=== PATIENT | male | born 1960 | race Caucasian/White ===

== ENCOUNTER → 2017-05-26 11:19 | Outpatient (CLI) | payer BC, SELFPAY ==
--- NOTE | 2017-05-26 11:32 | XR_ITS ---
XR wrist RT min 3V HISTORY: ITS.REASON: RT WRIST PAIN ORDERING PHYSICIAN: Ryan Mays MD PATIENT AGE: 56 years COMPARISON: None FINDINGS: No fracture or dislocation. No lytic or blastic change. There is normal mineralization.. The joint spaces are well-preserved. No significant degenerative/arthritic changes. No erosive changes evident.. IMPRESSION: Negative wrist
== END ==
PROVIDERS: PCP Internal Medicine Adolescent Medicine; Visit Provider Internal Medicine Adolescent Medicine
DX: M25.531 Pain in right wrist (principal)
CPT/HCPCS: 73110

== ENCOUNTER 2020-04-12 17:49 | Emergency (ER) | payer OTHER, SELFPAY ==
[2020-04-12 17:58] VITALS: BP 169/88; PULSE 88; RESP 17; TEMP 36.8; O2SAT 97; BMI 27.8
--- NOTE | 2020-04-12 19:01 | XR_ITS ---
PROCEDURE: XR CHEST 2V CLINICAL HISTORY: SOA/COUGH COMPARISON: CT CHWWO CT CHEST W/WO CONTRAST from 09/07/2016 FINDINGS: The cardiomediastinal silhouette and pulmonary vascularity are within normal limits. There is mild prominence of the interstitium which may be related to chronic peribronchial inflammatory change/COPD. No lobar consolidation or collapse Degenerative change thoracic spine IMPRESSION: No acute findings. Dictated by: Nadir Keen MD 04/12/2020 23:23 Nadir Keen MD in [place] 04/12/2020 23:23
[2020-04-12 19:12] VITALS: BP 169/88; PULSE 88; RESP 17; TEMP 36.8; O2SAT 97; BMI 27.7
--- NOTE | 2020-04-12 19:34 | HMH.EDUTC ---
[facility] [place] Clinical Impression: Acute bronchitis Qualifiers: Bronchitis organism: unspecified organism Qualified Code(s): J20.9 - Acute bronchitis, unspecified Disposition: Home, Self-Care Condition on Discharge: Good Instructions: Acute Bronchitis, Preventing the Spread of Coronavirus Discharge Instructions Additional Instructions: isolate until test results are known Start antibiotic today. Be sure to complete entire prescription even if feeling better Tylenol and ibuprofen as needed for pain or fever Humidifier/vaporizer/hot steamy shower Follow-up with primary care tomorrow. Follow-up immediately in the ER of the [facility] for new or worsening symptoms or no noticeable improvement over the next 48-72 hours. Stop smoking Tessalon Perles will not cause drowsiness to use at bedtime to help stop cough so that she can get some sleep Prescriptions: Benzonatate [Tessalon Perle 100mg Cap*] 100 mg PO BID 7 Days #14 cap Transmission Status: Pending to [employer] Azithromycin [Zithromax 250mg tab] 250 mg PO DIRECTED #6 tab Transmission Status: Pending to [employer] Referrals: Ryan Mays MD [Primary Care Provider] - Forms: Work/School Release Time of Disposition: 19:46 Medical Decision Making - Jarvis Inquiry Pt receiving controlled substance: No Vital Signs: 04/12/20 17:58 04/12/20 19:12 Temperature 98.2 F 98.2 F Temperature Source Oral Oral Pulse Rate [Right Radial] 88 88 Respiratory Rate 17 17 Blood Pressure [Right Arm] 169/88 H 169/88 H Blood Pressure Mean [Right Arm] 115 115 Blood Pressure Source [Right Arm] Automatic Cuff Blood Pressure Position [Right Arm] Sitting 02 Sat by Pulse Oximetry 97 97 Oxygen Delivery Method Room Air Room Air Orders (Tests/Meds): ORDERS Category Date Time Status Chest XR 2 view (NOT portable) [XR chest 2V] Stat Exams 04/12/20 19:01 Taken - Radiology Data #1 Image(s): Chest Image Reviewed: Yes I reviewed the patient's radiology image w/the ED provider Preliminary Findings: Normal/[place] [facility] [place] - General Chief complaint: [facility] Stated complaint: SOA;Coughing Time Seen by Provider: 04/12/20 19:42 Mode of Arrival: Ambulatory Source of Information: Patient Limitations: No Limitations Description of Symptoms (Recalled from Triage Doc. by RN): pt presents to ed with c/o upper respiratory symptoms and cough. 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 pt states that his listened to his lungs and states that she thinks he has pneumonia and wants him checked. pt denies fever. states his voice was hoarse earlier this week. HEENT Symptoms (Recalled from RN notes): No Resp Symptoms (Recalled from RN notes): Yes Skin Symptoms (Recalled from RN notes): No MS Symptoms (Recalled from RN notes): No Functional Status (Recalled from RN notes): WNL - History of Present Illness Provider Complaint: 59 yr old pt presents to ed with c/o upper respiratory symptoms and cough. 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 pt states that his who is a nurse listened to his lungs and states that she thinks he has pneumonia and wants him checked. pt denies fever. states his voice was hoarse earlier this week. - Related Data Previous Rx's Medication Instructions Recorded Azithromycin [Zithromax 250mg 250 mg PO DIRECTED #6 tab 04/12/20 tab] Benzonatate [Tessalon Perle 100mg 100 mg PO BID 7 Days #14 cap 04/12/20 Cap*] Allergies Allergy/AdvReac Type Severity Reaction Status Date / Time No Known Allergies Allergy Verified 04/12/20 19:15 - Worker's Comp Is this a Worker's Comp case?: No [facility] History - Hepatitis A Screen Drug use history?: No High risk sexual behaviors?: No History of sexually transmitted infection?: No Currently employed?: No Childcare worker?: No Do you have indoor plumbing?: Yes Do you have el
[2020-04-12 19:53] VITALS: BP 169/88; PULSE 88; RESP 17; TEMP 36.8; O2SAT 97
[2020-04-14 12:52] LABS: Covid-19 Nasal PCR Sendout Lex Not Detected
== END 2020-04-12 19:55 | disposition home or self-care (01) ==
PROVIDERS: Emergency Provider Nurse Practitioner Family; PCP Internal Medicine Adolescent Medicine
DX: Z20.828 Contact with and (suspected) exposure to other viral communicable diseases (principal); J20.9 Acute bronchitis, unspecified
CPT/HCPCS: 71046; 99202; U0004

== ENCOUNTER → 2021-12-10 13:20 | Outpatient (CLI) | payer OTHER, SELFPAY ==
[2021-12-10 14:05] LABS: Basophils # 0.1 K/mm3 (0-0.2); Basophils % 0.8 % (0.1-2.0); Eosinophils # 0.4 K/mm3 (0.0-0.4); Eosinophils % 5.7 % (0.1-12.0); Hematocrit 44.4 % (42.0-52.0); Hemoglobin 13.8 g/dL (14.1-18.0); Lymphocytes # 1.6 K/mm3 (0.7-4.5); Lymphocytes % 23.8 % (10-50); Mean Corpuscular HGB Conc 31.1 g/dL (31.8-35.4); Mean Corpuscular Hemoglobin 30.4 pg (27.0-31.2); Mean Corpuscular Volume 97.7 fl (80-94); Mean Platelet Volume 8.7 fl (7.4-10.4); Monocytes # 0.5 K/mm3 (0.1-1.0); Monocytes % 6.5 % (1.7-9.3); Neutrophils # 4.4 K/mm3 (1.8-7.8); Neutrophils % 63.2 % (37.0-80.0); Platelet Count 198 K/mm3 (142-424); Red Blood Count 4.54 M/mm3 (4.60-6.20); Red Cell Distribution Width 13.6 % (11.5-17.5); White Blood Count 6.9 K/mm3 (4.8-10.8)
[2021-12-10 14:18] LABS: Alanine Aminotransferase 20 U/L (12-78); Albumin Level 3.5 g/dl (3.5-5.0); Alkaline Phosphatase 138 U/L (38-126); Anion Gap 6.5 mEq/L (5-15); Aspartate Amino Transferase 23 U/L (17-59); Blood Urea Nitrogen 18 mg/dl (9-20); Calcium 8.6 mg/dl (8.4-10.2); Carbon Dioxide 28 mmol/L (22.0-30.0); Chloride 107 mmol/L (98-107); Estimated Glomerular Filt Rate 115 ml/min (>60); GFR (African American) 139 ML/MIN (>60); Glucose 162 mg/dl (74-100); Potassium 3.5 mmoL/L (3.5-5.1); Sodium 138 mmol/L (136-145)
[2021-12-10 14:30] LABS: Bilirubin,Total < 0.1 mg/dl (0.2-1.3)
[2021-12-10 15:11] LABS: Bilirubin,Indirect 0.1 mg/dL (0.0-0.9)
[2021-12-12 10:08] LABS: HIV Screen 4th Generation wRfx Non Reactive (Non Reactive)
[2021-12-12 23:15] LABS: Hep A Ab, IgM Negative; Hepatitis B Surface Antigen Negative; Hepatitis C Antibody 0.2
[2021-12-12 23:16] LABS: Hepatitis B Core Antibody IgM Negative
== END ==
PROVIDERS: PCP Internal Medicine Adolescent Medicine; Visit Provider Family Medicine Addiction Medicine
DX: F11.20 Opioid dependence, uncomplicated (principal); Z11.4 Encounter for screening for human immunodeficiency virus [HIV]
CPT/HCPCS: 36415; 80048; 80074; 80076; 85025; 86703; G0432

== ENCOUNTER 2022-03-14 08:46 | Emergency (ER) | payer OTHER, SELFPAY ==
[2022-03-14 08:47] VITALS: BP 154/77; PULSE 74; RESP 18; TEMP 36.8; O2SAT 97; BMI 25.7
--- NOTE | 2022-03-14 08:53 | XR_ITS ---
FINAL REPORT TECHNIQUE: Single view chest CLINICAL HISTORY: SOB/CP FINDINGS: A single view of the chest was obtained. The heart and mediastinum are within normal limits. There are mild chronic changes. The lungs are otherwise clear. There is no pneumothorax. Osseous structures are unremarkable. IMPRESSION: No acute cardiopulmonary process. Reviewed, Interpreted and Dictated by Sumeet Preciado MD Transcribed by Laney Zelaya Authenticated and [facility]
--- NOTE | 2022-03-14 08:54 | HMH.EDGENADL ---
Discharge Plan Disposition Patient Disposition: Home, Self-Care Condition: Good Prescriptions Prescriptions: New albuterol sulfate [ProAir HFA] 90 mcg/actuation HFA aerosol inhaler 1 inh inhalation Q6H PRN (Reason: shortness of breath or wheezing) Qty: 8.5 0RF No Action azithromycin 250 MG tablet 250 mg PO DIRECTED Qty: 6 0RF Rx Instructions: Take two (2) tablets on day #1, then one (1) tablet day #2 thru #5 benzonatate 100 MG capsule 100 mg PO BID 7 Days Qty: 14 0RF Referrals Follow up/Referrals: Ryan Mays MD [Primary Care Provider] - See instructions Clinical Impressions Clinical Impression: Acute dyspnea Instructions Patient Instructions: DI for Shortness of Breath, Albuterol Discharge ED Provider: Félix Chino General Adult HPI General Chief complaint: Shortness of Breath/Dyspnea Stated complaint: SOA Time Seen by Provider: 03/14/22 08:52 History of Present Illness HPI narrative: 7-year-old male, denies any prior respiratory difficulty, does admit to smoking. Denies any prior cardiac history or recent work-up. Reports shortness of breath just started today, denies associated chest pain, nausea, vomiting, diaphoresis, denies any fever, chills, cough, wheezing. Has not had any similar prior episodes in the past, is worse with exertion however not any worse with any particular position. He denies any leg swelling, denies any history of DVT/PE, denies any recent long distance travel, recent procedures. No known sick contacts, no treatments prior to arrival Related Data Previous Rx's Medication Instructions Recorded azithromycin 250 mg tablet 250 mg PO DIRECTED #6 tabs 04/12/20 benzonatate 100 mg capsule 100 mg PO BID 7 days #14 caps 04/12/20 albuterol sulfate 90 mcg/actuation 1 inh inhalation Q6H PRN shortness 03/14/22 aerosol inhaler (ProAir HFA) of breath or wheezing #8.5 grams Allergies Allergy/AdvReac Type Severity Reaction Status Date / Time No Known Allergies Allergy Verified 04/12/20 19:15 [facility] Medical History (Updated 03/14/22 @ 10:05 by Félix Chino MD) History of pancreatitis Surgical History (Updated 03/14/22 @ 09:34 by Alba Bustillos RN) History of back surgery History of knee surgery Social History (Updated 03/14/22 @ 09:34 by Alba Bustillos RN) Smoking Status: Current every day smoker alcohol intake: never current occupational status: employed and other Travel in the last 8 weeks: None ROS Obtained: Yes Systems reviewed as appropriate & no additional complaints except as documented Constitutional Constitutional: Reports system reviewed and no additional complaints, except as documented Eyes Eyes: Reports system reviewed and no additional complaints, except as documented ENT Ears, Nose, Mouth, and Throat: Reports system reviewed and no additional complaints, except as documented Cardiovascular Cardiovascular: Reports system reviewed and no additional complaints, except as documented Respiratory Respiratory: Reports system reviewed and no additional complaints, except as documented Gastrointestinal Gastrointestingal: Reports system reviewed and no additional complaints, except as documented Genitourinary Male Genitourinary: Reports system reviewed and no additional complaints, except as documented Musculoskeletal Musculoskeletal: Reports system reviewed and no additional complaints, except as documented Integumentary/Breasts Skin/Breast: Reports system reviewed and no additional complaints, except as documented Neurologic Neurologic: Reports system reviewed and no additional complaints, except as documented Endocrine Endocrine: Reports system reviewed and no additional complaints, except as documented Hematologic/Lymphatic Henatologic/Lymphatic: Reports system reviewed and no additional complaints, except as documented Allergic/Immunologic Allergic/Immunologic: Reports system reviewed and no additional complai
--- NOTE | 2022-03-14 08:59 | PC.NURSE ---
ED MD AT BEDSIDE FOR EVALUATION
--- NOTE | 2022-03-14 09:08 | PC.NURSE ---
XR AT BEDSIDE
[2022-03-14 09:23] LABS: Coronavirus 19, PCR Not Detected (NotDetected); Influenza A, PCR Not Detected (NotDetected); Influenza B, PCR Not Detected (NotDetected)
[2022-03-14 09:30] VITALS: BP 150/83; PULSE 74; RESP 20; O2SAT 95
[2022-03-14 09:32] LABS: Basophils # 0.1 K/mm3 (0-0.2); Basophils % 0.5 % (0.1-2.0); Eosinophils # 0.5 K/mm3 (0.0-0.4); Eosinophils % 3.5 % (0.1-12.0); Hematocrit 48.1 % (42.0-52.0); Hemoglobin 15.4 g/dL (14.1-18.0); Lymphocytes # 2.2 K/mm3 (0.7-4.5); Lymphocytes % 14.6 % (10-50); Mean Corpuscular Hemoglobin 30.4 pg (27.0-31.2); Mean Platelet Volume 8.3 fl (7.4-10.4); Monocytes # 0.8 K/mm3 (0.1-1.0); Monocytes % 5.6 % (1.7-9.3); Neutrophils # 11.2 K/mm3 (1.8-7.8); Neutrophils % 75.8 % (37.0-80.0); Platelet Count 234 K/mm3 (142-424); Red Blood Count 5.07 M/mm3 (4.60-6.20); Red Cell Distribution Width 14.2 % (11.5-17.5); White Blood Count 14.8 K/mm3 (4.8-10.8)
[2022-03-14 09:33] LABS: Chloride 95 mmol/L (98-107); Potassium 4.3 mmoL/L (3.5-5.1); Sodium 137 mmol/L (136-145)
[2022-03-14 09:36] LABS: Alanine Aminotransferase 41 U/L (12-78); Albumin Level 4.4 g/dl (3.5-5.0); Albumin/Globulin Ratio 1.7 (1.1-1.8); Alkaline Phosphatase 129 U/L (38-126); Anion Gap 15.3 mEq/L (5-15); Aspartate Amino Transferase 44 U/L (17-59); Bilirubin,Total 0.7 mg/dl (0.2-1.3); Blood Urea Nitrogen 18 mg/dl (9-20); Carbon Dioxide 31 mmol/L (22.0-30.0); Creatinine Clearance Estimated 160 mL/min (50-200); Estimated Glomerular Filt Rate 137 ml/min (>60); GFR (African American) 166 ML/MIN (>60); Globulin 2.6 g/dL (1.3-3.2)
[2022-03-14 09:37] LABS: Calcium 9.4 mg/dl (8.4-10.2); Glucose 104 mg/dl (74-100)
--- NOTE | 2022-03-14 09:38 | ECG_ITS ---
APPROVED REPORT Exam: Resting ECG HR:66 bpm ECG Measurements Heart Rate 66 AXES OK 157 P 62 QRSd 94 QRS 66 QT 406 T 60 QTc 419 Conclusion SINUS RHYTHM BORDERLINE ECG UNCONFIRMED REPORT Electronically signed by : Ryan Mays MD 03/14/2022 21:39:31
[2022-03-14 09:46] LABS: NT Pro Brain Natriuretic Pep. 38.3 pg/mL (0-125)
[2022-03-14 09:49] LABS: Troponin I < 0.01 ng/ml (0.00-0.034)
[2022-03-14 10:20] VITALS: BP 150/74; PULSE 72; RESP 18; TEMP 36.8; O2SAT 98
== END 2022-03-14 10:25 | disposition home or self-care (01) ==
PROVIDERS: Emergency Provider Emergency Medicine; PCP Internal Medicine Adolescent Medicine
DX: R06.03 Acute respiratory distress (principal); Z87.19 Personal history of other diseases of the digestive system
CPT/HCPCS: 71045; 80053; 83880; 84484; 85025; 93005; 99285; C9803; U0003; U0005